=== PATIENT | male | born 1975 ===

== ENCOUNTER 2018-07-28 00:11 | Emergency (ER) | payer SELFPAY ==
[~2018-07-28] VITALS: Ht 177.8 cm; Wt 72.6 kg
[2018-07-28 00:20] VITALS: BP 122/73
[2018-07-28] MEDS ORDERED: Sodium Chloride 500ML 500 ML IV ONE (00:27)
[2018-07-28] MEDS ORDERED: LORazepam Inj 2mg/ml 1ml IV ONE (00:30)
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
[2018-07-28 01:30] VITALS: BP 122/66
[2018-07-28 01:49] LABS: BASOPHILS % (AUTO) 0.9 % (0.0-2.0); EOSINOPHILS % (AUTO) 1.6 % (0.0-3.0); HEMATOCRIT 43.6 % (42.0-52.0); HEMOGLOBIN 15.4 G/DL (14.2-18.0); LYMPHOCYTES % (AUTO) 33.8 % (20.0-45.0); MEAN CORPUSCULAR VOLUME 84 FL (80-99); MONOCYTES % (AUTO) 6.8 % (1.0-10.0); NEUTROPHILS % (AUTO) 56.8 % (45.0-75.0); PLATELET COUNT 173 K/UL (150-450); RED BLOOD COUNT 5.17 M/UL (4.70-6.10); RED CELL DISTRIBUTION WIDTH 10.2 % (11.6-14.8); WHITE BLOOD COUNT 5.9 K/UL (4.8-10.8)
[2018-07-28 01:59] LABS: APPEARANCE,URINE CLOUDY; BILIRUBIN, URINE 1+ (NEGATIVE); GLUCOSE, URINE (UA) NEGATIVE (NEGATIVE); KETONES,URINE NEGATIVE (NEGATIVE); LEUKOCYTE ESTERASE ,URINE 3+ (NEGATIVE); NITRITE,URINE POSITIVE (NEGATIVE); PH,URINE 6 (4.5-8.0); PROTEIN,URINE 3+ (NEGATIVE); UROBILINOGEN,URINE 1 MG/DL (0.0-1.0)
--- NOTE | 2018-07-28 02:02 | Diagnostic Imaging Report ---
EXAM: XR Chest, 1 View CLINICAL HISTORY: Seizure TECHNIQUE: Frontal view of the chest. COMPARISON: No relevant prior studies available. FINDINGS: Limitations: Study performed rotated to the right. Lungs: Right lower lobe atelectasis/scarring without focal consolidation. Pleural space: No pleural effusion or pneumothorax. Heart: Unremarkable. No cardiomegaly. Mediastinum: Unremarkable. Bones/joints: Chronic appearing left posterior fourth rib fracture and age-indeterminate but chronic-appearing medial right clavicular fracture. IMPRESSION: 1. No acute cardiopulmonary process. 2. Chronic appearing left posterior fourth rib fracture and age- indeterminate but chronic-appearing medial right clavicular fracture. Correlate with tenderness to palpation.
[2018-07-28 02:20] LABS: ANION GAP 7 mmol/L (5-15); BLOOD UREA NITROGEN 11 mg/dL (7-18); CALCIUM 9.5 MG/DL (8.5-10.1); CARBON DIOXIDE 31 MMOL/L (21-32); CHLORIDE 104 MMOL/L (98-107); CREATININE 0.9 MG/DL (0.55-1.30); POTASSIUM 3.4 MMOL/L (3.5-5.1); SODIUM 142 MMOL/L (136-145)
[2018-07-28 02:27] LABS: COLOR,URINE YELLOW
[2018-07-28 02:31] LABS: ALANINE AMINOTRANSFERASE 23 U/L (12-78); ALBUMIN 3.8 G/DL (3.4-5.0); ALKALINE PHOSPHATASE 109 U/L (46-116); ASPARTATE AMINO TRANSFERASE 14 U/L (15-37); BILIRUBIN,TOTAL 1.2 MG/DL (0.2-1.0); CREATINE KINASE 63 U/L (26-308)
[2018-07-28 02:34] LABS: BILIRUBIN,DIRECT 0.2 MG/DL (0.0-0.3)
[2018-07-28 02:49] VITALS: BP 120/72
[2018-07-28 03:47] VITALS: BP 115/73
[2018-07-28] MEDS ORDERED: cefTRIAXone 1 GM in NS 55 ML IVPB ONE (04:15)
[2018-07-28 04:46] VITALS: BP 108/64
[2018-07-28] MEDS ORDERED: PHENOBARBITAL60 MG ORAL (05:38)
[2018-07-28] MEDS ORDERED: TRILEPTAL600 MG PO (05:38)
[2018-07-28] MEDS ORDERED: NITROFURANTOIN100 M2 ORAL (05:38)
[2018-07-28] MEDS ORDERED: KEPPRA1000 MG ORAL ×2 (05:38→05:42)
[2018-07-28 06:00] VITALS: BP 106/62
== END 2018-07-28 06:00 | disposition home or self-care (01) ==
LOC: EDBD 00:11 → EMR 00:44
DX: G40.802 Other epilepsy, not intractable, without status epilepticus (principal); N39.0 Urinary tract infection, site not specified; F15.10 Other stimulant abuse, uncomplicated; Z91.14 Patient's other noncompliance with medication regimen; Z72.0 Tobacco use; Z79.899 Other long term (current) drug therapy
CPT/HCPCS: 36415; 71045; 80053; 80184; 80299; 80307; 81003; 82248; 82550; 85025; 87086; 93005; 96361; 96365; 96375; 99284; G0480; J0696; J2560; 80329